=== PATIENT | male | born 1950 | race Caucasian/White ===

== ENCOUNTER 2022-08-18 11:45 | Outpatient (RCR) | payer MEDICARE, BC, SELFPAY | END 2022-09-23 14:07 | disposition home or self-care (01) | PROVIDERS: PCP Podiatrist; Visit Provider Podiatrist | DX: M25.571 Pain in right ankle and joints of right foot (principal); Z51.89 Encounter for other specified aftercare | CPT/HCPCS: 97110; 97112; 97140; 97161 ==

== ENCOUNTER 2022-09-23 08:39 | Outpatient (CLI) | payer MEDICARE, BC, SELFPAY ==
--- OUTSIDE RECORDS SUMMARY | 2022-09-23 08:42 | XMS_ITS ---
Author Name Unknown Organization [facility] Address [address] [place] [id number] Encounter Date(s): 05/02/22 - 05/02/[address] [place] [address] Discharge Disposition: Home or Self Care Attending Physician: MD FORD RICK W. Admitting Physician: MD FORD RICK W. Referring Physician: MD MILAGROS, PHYSICIAN Reason for Visit Cyst of kidney, acquired
--- NOTE | 2022-09-23 09:00 | CRLHL7_ITS ---
For Patients: As a result of the Century Cures Act, medical imaging exams and procedure reports are released immediately into your electronic medical record. You may view this report before your referring provider. If you have questions, please contact your health care provider. Indication: Weakness, lumbar stenosis, new right leg weakness, multiple back surgeries Technique: Noncontrast axial CT of the lumbar spine with coronal and sagittal reformats. Comparison: Lumbar spine x-ray 01/06/2022, MRI lumbar spine 02/25/2019 Findings: Since the 01/06/2022 exam, interval extension of the posterior instrumented spinal fusion now spanning L2-S1, with multilevel decompressive laminectomy. Stable anterior interbody fusion at L5-S1, and chronic fractured right S1 screw remnant. Interbody spacers are present at each surgical level. Subtle lucency along the tips of the bilateral L2 screws. Similar grade 1 retrolisthesis at L2-3 measuring approximately 3-4 mm, with bilateral L2 lamina fractures. Otherwise preserved lumbar lordosis. Scattered anterolateral projecting osteophytes. Bridging osteophytes across the bilateral SI joints. Aortoiliac atherosclerotic plaquing. Colonic diverticulosis. T11-T12, T12-L1, L1-L2: No significant neuroforaminal or spinal canal stenosis. L2-L3: Postop changes, retrolisthesis, bilateral L2 lamina fractures, left central disc protrusion. Mild bilateral neural foraminal narrowing. No significant spinal canal stenosis identified. L3-L4: Postop changes. No significant neural foraminal or spinal canal stenosis. L4-L5: Postop changes. Mild left neural foraminal narrowing. No spinal canal stenosis. L5-S1: Postop changes. Right eccentric disc-osteophyte complex with moderate right neural foraminal stenosis and potential impingement of the exiting right L5 nerve root. No signified left neural foraminal or spinal canal stenosis. Impression: 1. Since the 01/06/2022 exam, interval extension of posterior instrumented spinal fusion, now spanning L2-S1, with multilevel decompressive laminectomy, interbody spacers, and stable anterior L5-S1 fusion. 2. Subtle lucency along the tips of both L2 screws, suspicious for loosening. 3. Fractures of the bilateral L2 lamina, with similar grade 1 retrolisthesis L2 on L3. 4. At L5-S1, right eccentric disc-osteophyte complex encroaches upon the exiting right L5 nerve root along the moderately stenosed neural foramen. Please note that all CT scans at this facility use dose modulation, iterative reconstruction, and/or weight-based dosing when appropriate to reduce radiation dose to as low as reasonably achievable. Dictated by Mayelin Garcia MD @ 09/24/2022 10:27:58 AM (Electronically Signed)
== END 2022-09-23 08:40 | disposition home or self-care (01) ==
PROVIDERS: PCP Podiatrist; Visit Provider Specialist
DX: M48.062 Spinal stenosis, lumbar region with neurogenic claudication (principal); M62.81 Muscle weakness (generalized); T84.038A Mechanical loosening of other internal prosthetic joint, initial encounter; M48.56XA Collapsed vertebra, not elsewhere classified, lumbar region, initial encounter for fracture
CPT/HCPCS: 72131

== ENCOUNTER 2023-02-19 09:15 | Outpatient (RCR) | payer MEDICARE, BC, SELFPAY | END 2023-04-23 11:28 | disposition home or self-care (01) | PROVIDERS: PCP Podiatrist; Visit Provider Orthopaedic Surgery | DX: M25.551 Pain in right hip (principal); M17.11 Unilateral primary osteoarthritis, right knee; M25.561 Pain in right knee; Z51.89 Encounter for other specified aftercare | CPT/HCPCS: 97110; 97161 ==

== ENCOUNTER 2024-08-16 06:36 | Outpatient (CLI) | payer MEDICARE, BC, SELFPAY ==
--- OUTSIDE RECORDS SUMMARY | 2024-08-16 07:30 | XMS_ITS | Clinical Summary ---
Author Organization [facility] Address [address] [place] [address] Care Team Providers Care Paring Machine Operator Name Role Phone Narendra Castle M.D. Primary Care Provider [phone] Source Comments Patient records contain information from all sites at [facility]. For routine questions regarding patient records, call [phone] during business hours, M-F 8:00 AM - 5:00 PM Central Time. Record requests for emergency care only can be directed to [phone] at any time.[facility] Allergies Active Allergy Reactions Criticality Noted Date Comments Amoxicillin Other (see comments) 04/05/2024 Penicillins Hives (Reselect Reaction) 07/03/2005 Chart shows patient received Keflex 500mg #21 on 05/24/2009 and 02/25/2011; Ancef ivpb one dose on 02/11/2011 Tolerated cefazolin 09/15/18 ##No similarities in side chains, very low to no risk of cross-sensitivity to ANCEF. [facility]W Antimicrobial Stewardship Team 11/2018 Sulfa (Sulfonamide Antibiotics) Hives (Reselect Reaction) 07/03/2005 Medications * This document contains information received from the source organization and may not represent a complete record from that organization. cholecalciferol (VITAMIN D3) 50 mcg (2,000 Unit) capsule Take 2,000 Units by mouth daily. Active niacin 500 mg tablet Take 1,000 mg by mouth daily. Active SUMAtriptan (IMITREX) 100 mg tablet Take 100 mg by mouth as needed. 12/11/201 4 Active ascorbic acid, vitamin C, (VITAMIN C) 1,000 mg tablet Take 1,000 mg by mouth 2 (two) times a day. Active zinc chelated 50 mg tablet tablet Take 50 mg by mouth. Active acetaminophen (TYLENOL) 500 mg tablet Take 1,000 mg by mouth every 6 (six) hours as needed. 3 Active diclofenac sodium (VOLTAREN) 1 % gel Apply 2 g topically 4 (four) times a day as needed. Active oxyCODONE (Roxicodone) 5 mg immediate release tablet Take 5-10 mg by mouth every 6 (six) hours as needed. 3 Active polyethylene glycol (Miralax) 17 gram/dose oral powder 17 g by Nasogastric route at bedtime as needed. 3 Active atenoloL (Tenormin) 50 mg tablet Take 1 tablet by mouth daily. 4 Active Active Problems No known active problems Immunizations Immunization Administration Dates Next Due Tdap 04/05/2024 Social History Tobacco Use Types Packs/Day Years Used Date Smoking Tobacco: Former Cigarettes Q uit: 1979 Passive Smoke Exposure: Past Smokeless Tobacco: Never Tobacco Cessation:Counseling Given: Not Answered Alcohol Use Standard Drinks/Week Comments Yes 0 (1 standard drink = 0.6 oz pur e alcohol) Humiliation, Afraid, Rape, and Kick questionnair e Answer Date Recorded Within the last year, have y ou been afraid of your partner or ex-partner? No 10/25/2021 Within the last year, have y ou been humiliated or emotionally abused in other ways by your partner or ex-partner? No Within the last year, have y ou been kicked, hit, slapped, or otherwise physically hurt by your partner or ex-partner? No 10/25/2021 Within the last year, have y ou been raped or forced to have any kind of sexual activity by your partner or ex-partner? No 10/25/2021 Hunger Vital Sign Answer Date Recorded Within the past 12 months, y ou worried that your food would run out before you got the money to buy more. Never true 10/26/19 22 Within the past 12 months, t he food you bought just didn't last and you didn't have money to get more. Never true 10/25/2021 PRAPARE - Transportation Answer Date Re corded In the past 12 months, has l ack of transportation kept you from medical appointments or from getting medications? No 03/2021 In the past 12 months, has l ack of transportation kept you from meetings, work, or from getting things needed for daily living? No 10/25/2021 Housing Stability Vital Sign Answer Omer e Recorded In the last 12 months, was t here a time when you were not able to pay the mortgage or rent on time? No 10/25/2021 In the last 12 months, how many places have you lived? 1 10/25/2021 In the last 12 months, was t here a time when you did not have a steady place to sleep or slept in a retirement (including now)? No 10/25/2021 Education Answer Date Recorded What is the highest level of school you have completed or the highest degree you have received? 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 Gender Identity Not on file Sexual Orientation Straight 10/25/2021 7: 16 AM CDT Last Filed Vital Signs Vital Sign Reading Time Taken Comments Blood Pressure 135/89 04/05/2024 2:40 PM POUCH MAKING MACHINE OPERATOR Pulse 75 04/05/2024 2:40 PM POUCH MAKING MACHINE OPERATOR Temperature 36.1 C (97 F) 04/05/2024 2:40 PM POUCH MAKING MACHINE OPERATOR Respiratory Rate 18 04/05/2024 2:40 PM POUCH MAKING MACHINE OPERATOR Oxygen Saturation 97% 04/05/2024 2:40 PM POUCH MAKING MACHINE OPERATOR Inhaled Oxygen Concentration - - Weight 87.8 kg (193 lb 9.6 oz) 04/05/2024 2:37 P M POUCH MAKING MACHINE OPERATOR Height 177.8 cm (5' 10) 04/05/2024 2:37 PM POUCH MAKING MACHINE OPERATOR Body Mass Index 27.78 04/05/2024 2:37 PM POUCH MAKING MACHINE OPERATOR Plan of Treatment Health Maintenance Due Date Last Done Comments CT Colonography 1950 Cologuard 1950 FIT 1950 Hepatitis C Screening 1950 Visit: Annual, age 65+ (or Medicare and <65) 1950 Visit: Medicare Annual Wellness 1950 Fasting Glucose for Diabetes Screening 09/19/2021 09/19/2018, 09/17/2018 Colonoscopy 06/28/2022 06/28/2012 Colorectal Cancer Screening 06/28/2022 COVID-19 Vaccine ( season) 2023 Influenza Vaccine (#1) 2023 , 11/10/2017, 12/04/2016, Additional history exists Depression Screening (Annual PHQ-2) 02/24/2024 Fall Risk Screen (Annual) 02/24/2024 DTaP,Tdap,and Td Vaccines (4 - Td or Tdap) 04/05/2034 04/05/2024, 03/27/2014, 08/21/2005 Abdominal Aortic Aneurysm (AAA) Screen Completed 03/27/2014 Pneumococcal vaccine (50+ years) Completed 11/10/2017, 10/28/2016 Zoster Vaccines Completed 09/21/2019, 06/23, 06/08/2013 IPV Vaccines Aged Out No longer eligi ble based on patient's age to complete this topic Medical Devices Implanted Type Area Resource Recovery Specialist Device Identifier Shelf Expiration Date Model / Serial / Lot Hardware E.G. Pins/Screws/Ro ds Hardware e.g. pins/screws/ rods Back Description:L4-5, S1 Fusion Hardware E.G. Pins/Screws/Ro ds Hardware e.g. pins/screws/ rods Neck Description:C4-C5 Fusion Knee Implant Knee Implant Left: Knee Insurance [employer] Care Teams Paring Machine Operator Relationship Specialty Start Date End Date Narendra Castle M.D. PCP - General Family Medicine 08/24/22
--- OUTSIDE RECORDS SUMMARY | 2024-08-16 07:30 | XMS_ITS | Clinical Summary ---
Author Organization [facility] Address [address] [place] [id number] Care Team Providers Care [facility] Supervisor Name Role Phone Narendra Castle MD Primary Care Provider Allergies Active Allergy Reactions Criticality Noted Date Comments Amoxicillin Hives 07/03/2005 ##No similarities in side chains, very low to no risk of cross-sensitivity to ANCEF. [facility] Antimicrobial Stewardship Team 11/2018 Penicillins [facility] 07/03/2005 Chart shows patient received Keflex 500mg #21 on 05/24/2009 and 02/25/2011; Ancef ivpb one dose on 02/11/2011 Tolerated cefazolin 09/15/18 ##No similarities in side chains, very low to no risk of cross-sensitivity to ANCEF. [facility] Antimicrobial Stewardship Team 11/2018 Sulfa (Sulfonamide Antibiotics) [facility] 07/03/2005 Medications alfuzosin (UROXATRAL) 10 mg Sustained-Relea se tabletIndicatio ns:Benign prostatic hyperplasia with nocturia Take 1 tablet by mouth once daily with a meal. 30 tablet 11 8 Active cholecalciferol (VITAMIN D3) 5,000 unit capsule Take 5,000 units by mouth once daily. Active gabapentin (NEURONTIN) 300 mg capsule Take 300 mg by mouth 2 times daily. 1 Active SUMAtriptan (IMITREX) 100 mg tablet Take 100 mg by mouth once daily if needed for Migraine. 1 Active ascorbic acid, vitamin C, (VITAMIN C) 1,000 mg tablet Take 1,000 mg by mouth once daily in the evening. Active rosuvastatin (CRESTOR) 20 mg tablet Take 20 mg by mouth at bedtime. Active diclofenac topical (VOLTAREN) 1 % gel Apply 2 g topically to affected area(s) 4 times daily if needed (pain). Active acetaminophen (TYLENOL EXTRA STRGTH) 500 mg tabletIndicatio ns:Acute post-operative pain Take 2 Tablets (1,000 mg) by mouth every 6 hours if needed for Pain. Max acetaminophen dose: 4000mg in 24 hrs. 0 3 Active WalkerIndicatio ns:Spinal stenosis of lumbosacral region Walker with front wheels for home use for 3 months. 1 Each 3 Active methocarbamoL (ROBAXIN) 750 mg tabletIndicatio ns:Acute post-operative pain,S/P spinal surgery Take 1 Tablet (750 mg) by mouth every 6 hours if needed for Muscle Spasm. 30 Tablet 08/21/2022 4:18 PM CDT 3 Active ascorbic acid, vitamin C, (Vitamin C) 500 mg tablet Take 500 mg by mouth every morning. Active oxyCODONE (ROXICODONE) 5 mg immediate release tabletIndicatio ns:S/P spinal surgery Take 1-2 Tablets (5-10 mg) by mouth every 6 hours if needed for Pain. 16 Tablet 12/25/2022 8:14 PM CDT 3 Active polyethylene glycoL (MIRALAX) 17 gram/scoop powderIndicatio ns:S/P spinal surgery Take 1 scoop (17 g) by mouth or nasogastric tube once daily if needed for Constipation. 238 g 12/25/2022 8:14 PM CDT 3 Active sennosides-docu sate (SENOKOT S) (8.6-50 mg) tabletIndicatio ns:S/P spinal surgery Take 1-4 Tablets by mouth two times daily. 28 Tablet 12/25/2022 8:14 PM CDT 3 Active Active Problems Problem Noted Date Diagnosed Date Lumbago 07/28/2024 Back pain with right-sided radiculopathy 023 Overview (12/25/2022): to right hip Personal history of malignant neoplasm of testis 12/25/2022 Thrombocytopenia 12/25/2022 S/P spinal surgery 10/16/2021 Herniated disc, cervical 09/04/2020 Nonalcoholic fatty liver disease 09/05/2019 Lumbar stenosis 08/09/2019 Testicular cancer 09/15/2018 Essential tremor 09/15/2018 Hyperlipidemia 09/15/2018 BPH (benign prostatic hyperplasia) 09/15/2018 Migraine 09/15/2018 Nocturia 06/22/2017 Intractable migraine without status migrainosus 01/08/2015 Neuroma 02/18/2010 Allergic rhinitis, cause unspecified 04/16/2009 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, including hip 07/06/2007 Spinal stenosis of lumbosacral region Resolved Problems Problem Noted Date Diagnosed Date Resolved Date Ingrowing nail 07/13/2013 09/08/2014 Migraine, unspecified, with intractable migraine, so stated, without mention of status migrainosus 09/07/2006 01/08/2015 Plantar fascial fibromatosis 02/04/2006 06/08/2013 Encounters Date Type Department Care Team Description 08/11/2024 Travel 08/02/2024 9:00 AM CDT Ancillary Procedure [facility] [address] [address] 08/02/2024 Travel 07/28/2024 Travel 07/27/2024 Transcribe Orders [facility] [address] [place] [address] Shahriar Meza MD 07/24/2024 10:15 AM CDT Ancillary Procedure [facility] [address] [address] 07/24/2024 9:30 AM CDT Ancillary Procedure [facility] [id number] [address] 07/24/2024 Travel 07/21/2024 Travel 07/07/2024 Transcribe Orders [facility] [phone] Liana Russo PA 05/31/2024 2:45 PM CDT Ancillary Procedure [facility] [address] [place] [address] 05/31/2024 Travel 05/31/2024 Orders Only [facility] [address] [place] [address] Liana Russo PA <No scans attached> from Last 3 Months Immunizations Immunization Administration Dates Next Due DTaP 08/21/2005 Hepatitis B (Adult) 12/04/2016, 8,09/25/2006,2005 Influenza, IIV3 (Age >=3 years) 12/04/2014 Influenza, IIV4 (=>6mos) MDV 11/10/2017, 12/04/2016,10/23/2015,2013 Influenza, Inactivated AIIV4 (Age 65+ Years) Preserv Free 12/12/2019 Pneumococcal Poly,23-Valent (Pneumovax) 11/10/2017 Pneumococcal conj 13-Valent (Prevnar 13) 10/28/2016 Tdap 03/27/2014 Typhoid (injectable) 05/07/2015,03/13/2009 Zoster (Shingrix-RZV, recombinant) 09/21/2019, Zoster (Zostavax-ZVL, live) 06/08/2013 Family History Medical History Relation Name Comments Hyperlipidemia Mother Relation Name Status Comments Brother 1 Alive Brother 2 Alive Father Mother Sister 1 Alive Sister 2 Alive Sister 3 Alive Social History Tobacco Use Types Packs/Day Years Used Date Smoking Tobacco: Former Cigarettes 1.5 43 0 07/29/1966 - 07/29/1978 Smokeless Tobacco: Never Tobacco Cessation:Counseling Given: Not Answered Alcohol Use Standard Drinks/Week Comments Yes 2 (1 standard drink = 0.6 oz pur e alcohol) 2 beers a week Social Connections Answer Date Recorded Frequency of Communication with Friends and Fami ly 0 12/24/2022 Financial Resource Strain Answer Date R ecorded Difficulty of Paying Living Expenses 3 12/24/2022 Difficulty of Paying Living Expenses Not on file 12/24/2022 Food Insecurity Answer Date Recorded Do you worry your food will run out before you are able to buy more? 1 12/24/2022 Transportation Needs Answer Date Record ed Lack of Transportation (Medical) 1 12/24/2022 Housing Stability Answer Date Recorded What is your housing situation today? 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 Not on file Not on file Obstetrics History Last Filed Vital Signs Vital Sign Reading Time Taken Comments Blood Pressure 135/80 12/30/2022 10:15 AM MULTIMEDIA ENGINEER Pulse 95 12/30/2022 10:11 AM MULTIMEDIA ENGINEER Temperature 36.8 C (98.2 F) 12/30/2022 10:11 AM MULTIMEDIA ENGINEER Respiratory Rate 12 12/30/2022 10:11 AM MULTIMEDIA ENGINEER Oxygen Saturation 96% 12/30/2022 10:11 AM MULTIMEDIA ENGINEER Inhaled Oxygen Concentration - - Weight 93 kg (205 lb) 12/24/2022 9:59 AM CDT Height 177.8 cm (5' 10) 12/24/2022 9:59 AM CDT Body Mass Index 29.41 12/24/2022 9:59 AM CDT Plan of Treatment Health Maintenance Due Date Last Done Comments Depression screening for age 12+ 1963 Hepatitis C screening for ag e 18-79 04/23/1969 Medicare Wellness for age 65+ 04/23/2016 BMI (ht and wt on same day) for age 18+ 06/29/2019 06/28/2018 Lipids for age 45-75 09/09/2019 09/08/2014, 06/08/2013, 03/01/2012, Additional history exists Colonoscopy through age 75 06/28/2022 06/28/2012, COVID-19 vaccine series ( season) 2023 Tetanus booster 03/27/2024 03/27/2014, 02/2010 (Completed outside of [facility]) Influenza Vaccine (Season Ended) 2024 12/12/2019, 11/10/2017, 12/04/2016, Additional history exists RSV vaccine for adults or (1 - 1-dose 75+ series) 04/23/2026 Tdap Completed 03/27/2014 Hepatitis B series for 19+ Completed 12/04, 03/23/2007, 09/25/2006, Additional history exists Pneumococcal series for age 50+ Completed 8, 10/28/2016 Zoster (shingles) series for age 50+ Completed 09/21/2019, 07/12/2019, 06/08/2013 Medical Devices Implanted Type Area Inside Sales Account Executive Device Identifier Shelf Expiration Date Model / Serial / Lot [id number] ne Matrix 5cc [place] Plus Paste Dbm Implanted:Qty: 1 on 09/15/2018 by Megan Vazquez MD at [facility] Explanted:at [facility] (Quantity not on file) N/A: Spine Medtronic Spine/Ortho 03/18/2020 [id number]# / [id number] / Set Screw Lmbr 5.5-6mm Vitality Torque - [id number] Implanted:Qty: 4 on 09/15/2018 by Megan Vazquez MD at [facility] N/A: Spine Laz Biomet Spine 66520.00 1# / / [id number] ne 1-4mm 30cc Medtronic Chips Canclls Freeze Dried Implanted:Qty: 1 on 09/15/2018 by Megan Vazquez MD at [facility] Explanted:at [facility] (Quantity not on file) N/A: Spine Medtronic Spine/Ortho 02/06/2023 [id number]# / [id number] / [id number] ne 1-4mm 15cc Medtronic Chips Canclls Freeze Dried Implanted:Qty: 1 on 09/15/2018 by Megan Vazquez MD at [facility] Explanted:at [facility] (Quantity not on file) N/A: Spine Medtronic Spine/Ortho 11/01/2022 [id number]# / [id number] / Spacer Lmbr Lg 16mm 8deg Perimeter Alif Peek - [id number] Implanted:Qty: 1 on 09/15/2018 by Megan Vazquez MD at [facility] N/A: Spine Medtronic Spine/Ortho 07/14/2026 [id number]# / / 96HP Screw Lmbr Ant 6.5x25mm Pyramid Plus Va - [id number] Implanted:Qty: 1 on 09/15/2018 by Megan Vazquez MD at [facility] N/A: Spine Medtronic Spine/Ortho [id number]# / / Washer 17mm - [id number] Implanted:Qty: 1 on 09/15/2018 by Megan Vazquez MD at [facility] N/A: Spine Medtronic Spine/Ortho [id number]# / / Jewel Lmbr 45x5.5mm Vitality Cvd Titnm - [id number] Implanted:Qty: 2 on 09/15/2018 by Megan Vazquez MD at [facility] N/A: Spine Laz Biomet Spine 15 6# / / Screw Lmbr Post 6.5x45mm Vitality Va - [id number] Implanted:Qty: 3 on 09/15/2018 by Megan Vazquez MD at [facility] N/A: Spine Laz Biomet Spine .07 5# / / Screw Lmbr Post 6.5x50mm Vitality Va - [id number] Implanted:Qty: 1 on 09/15/2018 by Megan Vazquez MD at [facility] N/A: Spine Laz Biomet Spine .07 6# / / [id number] ne Matrix 3cc Luz Dbf Putty Dbm Implanted:Qty: 1 on 08/09/2019 by Megan Vazquez MD at [facility] Explanted:at [facility] (Quantity not on file) N/A: Spine Medtronic Spine/Ortho 2021 [id number]# / [id number] / [id number] ne 1-4mm 30cc Medtronic Chips Canclls Freeze Dried Implanted:Qty: 1 on 08/09/2019 by Megan Vazquez MD at [facility] Explanted:at [facility] (Quantity not on file) N/A: Spine Medtronic Spine/Ortho 11/15/2023 [id number]# / [id number] / Spacer Lmbr [id number] [place] Convex Stra Plif - [id number] Implanted:Qty: 1 on 08/09/2019 by Megan Vazquez MD at [facility] N/A: Spine Laz Biomet 11/22/2024 [id number]# / / [id number] Screw Lmbr Post 6.5x45mm Vitality Va - [id number] Implanted:Qty: 3 on 08/09/2019 by Megan Vazquez MD at [facility] N/A: Spine Laz Biomet Spine . 5# / / Screw Lmbr Post 7.5x50mm Vitality Va - [id number] Implanted:Qty: 2 on 08/09/2019 by Megan Vazquez MD at [facility] N/A: Spine Laz Biomet Spine 8# / / Set Screw Lmbr 5.5-6mm Vitality Torque - [id number] Implanted:Qty: 5 on 08/09/2019 by Megan Vazquez MD at [facility] N/A: Spine Laz Biomet Spine 1# / / Jewel Lmbr 65x5.5mm Vitality Cvd Titnm - [id number] Implanted:Qty: 1 on 08/09/2019 by Megan Vazquez MD at [facility] N/A: Spine Laz Biomet Spine 15. 0# / / Jewel Lmbr 45x5.5mm Vitality Cvd Titnm - [id number] Implanted:Qty: 1 on 08/09/2019 by Megan Vazquez MD at [facility] N/A: Spine Laz Biomet Spine 15 6# / / [id number] bone Cerv 7mm 4 Deg Liberal W/P Implanted:Qty: 1 on 09/04/2020 by Megan Vazquez MD at [facility] Explanted:at [facility] (Quantity not on file) N/A: Spine Herminia Spine 10/16/2024 [id number] / [id number] / [id number] ne Matrix 0.5cc Progenix Putty Dbm Implanted:Qty: 1 on 09/04/2020 by Megan Vazquez MD at [facility] Explanted:at [facility] (Quantity not on file) N/A: Spine Medtronic Spine/Ortho 12/26/2021 [id number] / [id number] / [id number] bone Cerv 7mm 4 Deg Liberal W/P Implanted:Qty: 1 on 09/04/2020 by Megan Vazquez MD at [facility] Explanted:at [facility] (Quantity not on file) N/A: Spine Liberal Spine 05/01/2025 [id number] / [id number] / Plate Centre 2level 40mm Implanted:Qty: 1 on 09/04/2020 by Megan Vazquez MD at [facility] N/A: Spine [id number] / / Description:PLATE OZARK 2LEV EL 40MM Screw Centre Variable 4.0 X 14 Implanted:Qty: 6 on 09/04/2020 by Megan Vazquez MD at [facility] N/A: Spine [id number] / / Description:SCREW OZARK VARI ABLE 4.0 X 14 [id number] 1-4mm 15cc Medtronic Chips Canclls Freeze Dried Implanted:Qty: 1 on 10/16/2021 by Megan Vazquez MD at [facility] Explanted:at [facility] (Quantity not on file) N/A: Spine Medtronic Spine/Ortho 09/04/2025 [id number] / [id number] / Jewel Lmbr 65x5.5mm Vitality Cvd Titnm - [id number] Implanted:Qty: 1 on 10/16/2021 by Megan Vazquez MD at [facility] N/A: Spine Laz Biomet Spine 0 / / Set Screw Lmbr 5.5-6mm Vitality Torque - [id number] Implanted:Qty: 3 on 10/16/2021 by Megan Vazquez MD at [facility] N/A: Spine Laz Biomet Spine 1 / / Screw 7.5x45mm Implanted:Qty: 1 on 10/16/2021 by Megan Vazquez MD at [facility] N/A: Spine [id number] / / Description:SCREW 7.5X45MM Moldable Demineralized Fibers Implanted:Qty: 1 on 08/20/2022 by Megan Vazquez MD at [facility] 12/24/2026 BL-1800-05 / [id number] / Description:MOLDABLE DEMINER ALIZED FIBERS Bone 1-4mm 60cc Medtronic Fine Canclls Freeze Dried - [id number] Implanted:Qty: 1 on 08/20/2022 by Megan Vazquez MD at [facility] N/A: Spine Medtronic Spine/Ortho 04/28/2026 [id number] / [id number] / Spacer Lmbr [id number] Zyston Convex Stra Tlif - [id number] Implanted:Qty: 1 on 08/20/2022 by Megan Vazquez MD at [facility] N/A: Spine Laz Biomet 05/23/2024 14-507770 / / [id number] Spacer Lmbr [id number] Zyston Convex Stra Tlif - [id number] Implanted:Qty: 1 on 08/20/2022 by Megan Vazquez MD at [facility] N/A: Spine Laz Biomet 14-452312 / / [id number] Screw Poly 6.5 X 45 Implanted:Qty: 4 on 08/20/2022 by Megan Vazquez MD at [facility] N/A: Spine [id number] / / Description:SCREW POLY 6.5 X 45 Screw Poly 7.5 X 45 Implanted:Qty: 1 on 08/20/2022 by Megan Vazquez MD at [facility] N/A: Spine [id number] / / Description:SCREW POLY 7.5 X 45 Jewel Lmbr 100x5.5mm Vitality Cvd Titnm - [id number] Implanted:Qty: 1 on 08/20/2022 by Megan Vazquez MD at [facility] N/A: Spine Laz Biomet Spine 07.30331.01 7 / / Jewel Lmbr 120x5.5mm Vitality Cvd Titnm - [id number] Implanted:Qty: 1 on 08/20/2022 by Megan Vazquez MD at [facility] N/A: Spine Laz Biomet Spine 1 / / Set Screw Lmbr 5.5-6mm Vitality Torque - [id number] Implanted:Qty: 9 on 08/20/2022 by Megan Vazquez MD at [facility] N/A: Spine Laz Biomet Spine 1 / / [id number] 1-10mm 30cc Medtronic Chips Canclls Freeze Dried Implanted:Qty: 1 on 12/24/2022 at [facility] N/A: Spine Medtronic Spine/Ortho 08/05/2025 [id number] / [id number] / Bone Matrix Md Infuse Bmp - [id number] Implanted:Qty: 1 on 12/24/2022 by Megan Vazquez MD at [facility] N/A: Spine Medtronic Spine/Ortho 05/23/2024 [id number] / / [id number] Set Screw Lmbr 5.5-6mm Vitality Torque - [id number] Implanted:Qty: 9 on 12/24/2022 by Megan Vazquez MD at [facility] N/A: Spine Laz Biomet Spine 1 / / Jewel Lmbr 90x5.5mm Vitality Cvd Titnm - [id number] Implanted:Qty: 1 on 12/24/2022 by Megan Vazquez MD at [facility] N/A: Spine Laz Biomet Spine 5 / / Jewel Lmbr 95x5.5mm Vitality Cvd Titnm - [id number] Implanted:Qty: 1 on 12/24/2022 by Megan Vazquez MD at [facility] N/A: Spine Laz Biomet Spine 6 / / Jewel Lmbr 120x5.5mm Vitality Cvd Titnm - [id number] Implanted:Qty: 1 on 12/24/2022 by Megan Vazquez MD at [facility] N/A: Spine Laz Biomet Spine 1 / / Screw Lmbr Post 9.5x50mm Vitality Va - [id number] Implanted:Qty: 2 on 12/24/2022 by Megan Vazquez MD at [facility] N/A: Spine Laz Biomet Spine 07.59891.20 2 / / Screw Spinal 7.5x45mm Poly Tl Implanted:Qty: 2 on 12/24/2022 by Megan Vazquez MD at [facility] N/A: Spine [id number] / / Description:SCREW SPINAL 7.5 X45MM POLY TL Explanted Type Area Inside Sales Account Executive Device Identifier Shelf Expiration Date Model / Serial / Lot Explant - Laz Explanted:Qty: 1 on 08/09/2019 at [facility] N/A: Spine Description:SCREW X2 JEWEL X2 SET SCREW X4 Explant Explanted:Qty: 5 on 10/16/2021 by Megan Vazquez MD at [facility] N/A: Spine Description:JEWEL X1 SCREW X1 SET SCREW X3 Explant Vitality Explanted:Qty: 1 on 08/20/2022 at [facility] Description:2 RIDS, 2 SCREWS , 4 SET SCREWS Explant Explanted:Qty: 15 on 12/24/2022 by Megan Vazquez MD at [facility] N/A: Spine Description:RODX2 SCREW X4 SET SCREW X9 Procedures Procedure Name Priority Date/Time Associated Diagnosis Comments CT SPINE LUMBAR WO Routine 08/02/2024 8: 52 AM CDT Lumbar radiculopathy Spinal stenosis, lumbar region, without neurogenic claudication MR SPINE LUMBAR WO Routine 07/24/2024 9: 55 AM CDT Lumbar radiculopathy Spinal stenosis, lumbar region, without neurogenic claudication MR SPINE THORACIC WO Routine 07/24/2024 9:41 AM CDT Thoracic spinal stenosis XR SPINE LUMBAR 2 VIEWS STANDING Routine 05/31/2024 2:43 PM CDT S/P spinal surgery LIPID PANEL W REFLEX MEASURED LDL Routine 09/08/2014 1:21 PM CDT Screening for cardiovascular condition COLONOSCOPY SCREENING Routine 06/28/2012 12:00 AM CDT Special screening for malignant neoplasms, colon from Last 3 Months or Most Recently Relevant to Health Maintenance Results * CT SPINE LUMBAR WO (08/02/2024 8:52 AM CDT) Anatomical Region Laterality Modality LUMBAR SPINE, Spine, Spine Compu kary Tomography 08/02/2024 1:35 PM CDT Impressions 08/02/2024 1:35 PM CDT 1. Stable retrolisthesis of L2 on L3. Otherwise, normal alignment. No fractures 2. Stable postop changes L2-3 through L5-S1. Hardware appears well-seated 3. At L2-3, mild narrowing of the bilateral neural foramina 4. At L5-S1, mild narrowing of the bilateral neural foramina Please note that all CT scans at this facility use dose modulation, iterative reconstruction, and/or weight-based dosing when appropriate to reduce radiation dose to as low as reasonably achievable. Dictated by Severo Lopez MD @ 08/02/2024 1:35:29 PM (Electronically Signed) Narrative 08/02/2024 1:35 PM CDT For Patients: As a result of the Century Cures Act, medical imaging exams and procedure reports are released immediately into your electronic medical record. You may view this report before your referring provider. If you have questions, please contact your health care provider. INDICATION: Lumbar radiculopathy. COMPARISON: 07/24/2024. 05/31/2024. TECHNIQUE: Noncontrast CT lumbar spine. FINDINGS: Stable retrolisthesis of L2 on L3 measures approximately 3 mm. Otherwise, normal alignment. No fractures. No vertebral body loss of height. Stable postop changes diskectomy interbody fusion L2-3 through L5-S1. Posterior jewel trans view screw fixation L2-S1. Hardware appears well seated. Mature dorsal bone grafting. [id number]: No spinal canal neural foraminal narrowing. L1-2: No spinal canal neural foraminal narrowing. L2-3: Grade 1 retrolisthesis. No narrowing of spinal canal. Mild narrowing of the bilateral foramina. L3-4: Postoperative changes. No spinal canal or neural foraminal narrowing. L4-5: Postop changes. No narrowing of spinal canal. No neural foraminal narrowing. L5-S1: Postop changes. No narrowing of the spinal canal. No impingement of the traversing S1 nerve roots. Mild narrowing of the bilateral foramina. Degenerative changes of the SI joints. Scattered vascular calcifications. Procedure Note Severo Lopez MD, PhD - 08/02/2024 For Patients: As a result of the Cures Act, medical imagingexams and procedure reports are released immediately into your electronicmedical record. You may view this report before your referring provider.If you have questions, please contact your health care provider. INDICATION: Lumbar radiculopathy. COMPARISON: 07/24/2024. 05/31/2024. TECHNIQUE: Noncontrast CT lumbar spine. FINDINGS: Stable retrolisthesis of L2 on L3 measures approximately 3 mm. Otherwise,normal alignment. No fractures. No vertebral body loss of height. Stable postop changes diskectomy interbody fusion L2-3 through L5-S1.Posterior jewel trans view screw fixation L2-S1. Hardware appears wellseated. Mature dorsal bone grafting. [id number]: No spinal canal neural foraminal narrowing. L1-2: No spinal canal neural foraminal narrowing. L2-3: Grade 1 retrolisthesis. No narrowing of spinal canal. Mild narrowingof the bilateral foramina. L3-4: Postoperative changes. No spinal canal or neural foraminalnarrowing. L4-5: Postop changes. No narrowing of spinal canal. No neural foraminalnarrowing. L5-S1: Postop changes. No narrowing of the spinal canal. No impingement ofthe traversing S1 nerve roots. Mild narrowing of the bilateral foramina. Degenerative changes of the SI joints. Scattered vascular calcifications. IMPRESSION: 1. Stable retrolisthesis of L2 on L3. Otherwise, normal alignment. Nofractures 2. Stable postop changes L2-3 through L5-S1. Hardware appears well-seated 3. At L2-3, mild narrowing of the bilateral neural foramina 4. At L5-S1, mild narrowing of the bilateral neural foramina Please note that all CT scans at this facility use dose modulation,iterative reconstruction, and/or weight-based dosing when appropriate toreduce radiation dose to as low as reasonably achievable. Dictated by Severo Lopez MD @ 08/02/2024 1:35:29 PM (Electronically Signed) us Liana WINK[facility] CT Fi nal Result * MR SPINE LUMBAR WO (07/24/2024 9:55 AM CDT) Anatomical Region Laterality Modality Spine, LUMBAR SPINE Magnetic Res onance 07/25/2024 8:31 AM CDT Impressions 07/25/2024 8:31 AM CDT 1. Stable grade 1 retrolisthesis of L2 on L3. Otherwise, normal alignment. No fractures 2. Lumbar spondylosis. 3. Stable postop changes L2-S1. Associated artifact. 4. Lumbar spondylosis 5. At L1-2, mild narrowing of the bilateral neural foramina 6. At L3-4, there may be mild narrowing of the right neural foramen. 7. At L4-5 and L5-S1, mild narrowing of the bilateral neural foramina Dictated by Severo Lopez MD @ 07/25/2024 8:31:39 AM (Electronically Signed) Narrative 07/25/2024 8:31 AM CDT For Patients: As a result of the Century Cures Act, medical imaging exams and procedure reports are released immediately into your electronic medical record. You may view this report before your referring provider. If you have questions, please contact your health care provider. INDICATION: Lumbar radiculopathy. COMPARISON: 05/31/2024 and 01/04/2024. Technique Sagittal T1, T2, and STIR sequences. Axial T1 and T2 weighted sequences. FINDINGS: Stable grade 1 retrolisthesis of L2 on L3 measures approximately 4 mm. Otherwise, normal alignment. No fractures. No vertebral body loss of height. No ligamentous injury. No suspicious osseous lesions. Normal conus terminates at L1. Stable postop changes of diskectomy interbody fusion L2-3 through L5-S1. Posterior fusion hardware L2-S1. Associated artifact. T11-12: Disc degeneration posterior disc bulge. No spinal canal or neural foraminal narrowing. T12-L1: No spinal canal neural foraminal narrowing. L1-2: No narrowing of spinal canal. Facet arthropathy results in mild narrowing of bilateral foramina. L2-3: Postoperative changes. Spinal canal is decompressed by laminectomy. No spinal canal or neural foraminal narrowing. L3-4: Postoperative changes. Residual diffuse disc bulge. No narrowing of spinal canal. Allowing for artifact, mild narrowing of the right neural foramen. No narrowing of the left neural foramen. L4-5: Postoperative changes. Residual posterior disc bulging. No narrowing of spinal canal. Mild narrowing of bilateral foramina. L5-S1: Postoperative changes. No narrowing of spinal canal. No impingement of the traversing S1 nerve roots. Mild narrowing of bilateral foramina. Degenerative changes of the SI joints. Left renal cyst. Procedure Note Severo Lopez MD, PhD - 07/25/2024 For Patients: As a result of the Century Cures Act, medical imagingexams and procedure reports are released immediately into your electronicmedical record. You may view this report before your referring provider.If you have questions, please contact your health care provider. INDICATION: Lumbar radiculopathy. COMPARISON: 05/31/2024 and 01/04/2024. Technique Sagittal T1, T2, and STIR sequences. Axial T1 and T2 weightedsequences. FINDINGS: Stable grade 1 retrolisthesis of L2 on L3 measures approximately 4 mm.Otherwise, normal alignment. No fractures. No vertebral body loss ofheight. No ligamentous injury. No suspicious osseous lesions. Normal conusterminates at L1. Stable postop changes of diskectomy interbody fusion L2-3 through L5- S1.Posterior fusion hardware L2-S1. Associated artifact. T11-12: Disc degeneration posterior disc bulge. No spinal canal or neuralforaminal narrowing. T12-L1: No spinal canal neural foraminal narrowing. L1-2: No narrowing of spinal canal. Facet arthropathy results in mildnarrowing of bilateral foramina. L2-3: Postoperative changes. Spinal canal is decompressed by laminectomy.No spinal canal or neural foraminal narrowing. L3-4: Postoperative changes. Residual diffuse disc bulge. No narrowing ofspinal canal. Allowing for artifact, mild narrowing of the right neuralforamen. No narrowing of the left neural foramen. L4-5: Postoperative changes. Residual posterior disc bulging. No narrowingof spinal canal. Mild narrowing of bilateral foramina. L5-S1: Postoperative changes. No narrowing of spinal canal. No impingementof the traversing S1 nerve roots. Mild narrowing of bilateral foramina. Degenerative changes of the SI joints. Left renal cyst. IMPRESSION: 1. Stable grade 1 retrolisthesis of L2 on L3. Otherwise, normal alignment.No fractures 2. Lumbar spondylosis. 3. Stable postop changes L2-S1. Associated artifact. 4. Lumbar spondylosis 5. At L1-2, mild narrowing of the bilateral neural foramina 6. At L3-4, there may be mild narrowing of the right neural foramen. 7. At L4-5 and L5-S1, mild narrowing of the bilateral neural foramina Dictated by Severo Lopez MD @ 07/25/2024 8:31:39 AM (Electronically Signed) us [facility] Result * MR SPINE THORACIC WO (07/24/2024 9:41 AM CDT) Anatomical Region Laterality Modality Spine, THORACIC SPINE Magnetic R esonance 07/25/2024 8:24 AM CDT Impressions 07/25/2024 8:24 AM CDT 1. Normal alignment. No fractures. 2. Thoracic spondylosis 3. Normal cord signal. 4. Multilevel mild disc degeneration and posterior disc bulging. Otherwise, no spinal canal or neural foraminal narrowing. Dictated by Severo Lopez MD @ 07/25/2024 8:24:50 AM (Electronically Signed) Narrative 07/25/2024 8:24 AM CDT For Patients: As a result of the Cures Act, medical imaging exams and procedure reports are released immediately into your electronic medical record. You may view this report before your referring provider. If you have questions, please contact your health care provider. INDICATION: Thoracic spinal stenosis. COMPARISON: None. TECHNIQUE: Sagittal T1, T2, and STIR sequences. Axial T2/gradient sequences. FINDINGS: Normal vertebral body and facet alignment. No fractures. No vertebral body loss of height. No spondylosis is. No evidence injury. No suspicious osseous lesions. Postoperative changes in the cervical spine. Vertebral body hemangioma T11. Normal cord signal. No intradural mass or lesion. Thoracic spondylosis with multilevel disc degeneration. T2-3: Disc generation shallow right paracentral disc bulge or disc osteophyte complex. No narrowing of spinal canal. No neural foraminal narrowing. T4-5: Disc degeneration and shallow posterior disc bulge. No spinal canal neural foraminal narrowing. T7-8: Disc degeneration and shallow left paracentral disc bulge. No narrowing of spinal canal. No neural foraminal narrowing. T8-9: Disc degeneration. Posterior disc bulge. No narrowing of spinal canal. No neural foraminal narrowing. T9-10: Disc degeneration. Posterior disc bulge. No narrowing of spinal canal. No neural foraminal narrowing. T10-11: Disc degeneration. Posterior disc bulge. No spinal canal or neural foraminal narrowing. T11-12: Disc degeneration. Posterior disc bulge. No narrowing of spinal canal. No neural foraminal narrowing. Normal paraspinal soft tissues. Procedure Note Severo Lopez MD, PhD - 07/25/2024 For Patients: As a result of the Cures Act, medical imagingexams and procedure reports are released immediately into your electronicmedical record. You may view this report before your referring provider.If you have questions, please contact your health care provider. INDICATION: Thoracic spinal stenosis. COMPARISON: None. TECHNIQUE: Sagittal T1, T2, and STIR sequences. Axial T2/gradient sequences. FINDINGS: Normal vertebral body and facet alignment. No fractures. No vertebral bodyloss of height. No spondylosis is. No evidence injury. No suspiciousosseous lesions. Postoperative changes in the cervical spine. Vertebral body hemangioma T11. Normal cord signal. No intradural mass or lesion. Thoracic spondylosis with multilevel disc degeneration. T2-3: Disc generation shallow right paracentral disc bulge or discosteophyte complex. No narrowing of spinal canal. No neural foraminalnarrowing. T4-5: Disc degeneration and shallow posterior disc bulge. No spinal canalneural foraminal narrowing. T7-8: Disc degeneration and shallow left paracentral disc bulge. Nonarrowing of spinal canal. No neural foraminal narrowing. T8-9: Disc degeneration. Posterior disc bulge. No narrowing of spinalcanal. No neural foraminal narrowing. T9-10: Disc degeneration. Posterior disc bulge. No narrowing of spinalcanal. No neural foraminal narrowing. T10-11: Disc degeneration. Posterior disc bulge. No spinal canal or neuralforaminal narrowing. T11-12: Disc degeneration. Posterior disc bulge. No narrowing of spinalcanal. No neural foraminal narrowing. Normal paraspinal soft tissues. IMPRESSION: 1. Normal alignment. No fractures. 2. Thoracic spondylosis 3. Normal cord signal. 4. Multilevel mild disc degeneration and posterior disc bulging.Otherwise, no spinal canal or neural foraminal narrowing. Dictated by Severo Lopez MD @ 07/25/2024 8:24:50 AM (Electronically Signed) [facility] Result * XR SPINE LUMBAR 2 VIEWS STANDING (05/31/2024 2:43 PM CDT) Anatomical Region Laterality Modality Spine, LUMBAR SPINE Digital Radi ography 06/01/2024 9:22 AM CDT Narrative 06/01/2024 9:22 AM CDT For Patients: As a result of the Cures Act, medical imaging exams and procedure reports are released immediately into your electronic medical record. You may view this report before your referring provider. If you have questions, please contact your health care provider. Indication: Postsurgical follow-up. Technique: Two views lumbar spine Comparison: 06/24/2023. Findings: Postsurgical change of posterior lumbar fusion extending from L2 through S1. Unchanged fractured screw fragment on the right at S1. Otherwise, no evidence of hardware complication. No evidence of hardware loosening. Alignment unchanged, with trace L1 and L2 retrolisthesis. Atherosclerotic calcifications. Impression: Postsurgical changes of the lumbar spine. No acute complication. Dictated by Javier Pickens MD @ 06/01/2024 9:22:19 AM (Electronically Signed) Procedure Note Javier Pickens MD - 06/01/2024 For Patients: As a result of the Cures Act, medical imagingexams and procedure reports are released immediately into your electronicmedical record. You may view this report before your referring provider.If you have questions, please contact your health care provider. Indication: Postsurgical follow-up. Technique: Two views lumbar spine Comparison: 06/24/2023. Findings: Postsurgical change of posterior lumbar fusion extending from L2 throughS1. Unchanged fractured screw fragment on the right at S1. Otherwise, noevidence of hardware complication. No evidence of hardware loosening.Alignment unchanged, with trace L1 and L2 retrolisthesis. Atheroscleroticcalcifications. Impression: Postsurgical changes of the lumbar spine. No acute complication. Dictated by Javier Pickens MD @ 06/01/2024 9:22:19 AM (Electronically Signed) us [facility] Fi nal Result * (ABNORMAL) LIPID PANEL W REFLEX MEASURED LDL (09/08/2014 1:21 PM CDT) CHOLESTEROL,TOTAL 225(H) 100 - 199 mg/dL 09/08/2014 10:41 PM CDT [facility] TRIGLYCERIDES 163(H) <150 mg/dL 09/08/2014 10:41 PM CDT [facility] HDL CHOLESTEROL 49 >40 mg/dL 09/08/2014 10:41 PM CDT [facility] NON-HDL CHOLESTEROL 176(H) <145 mg/dl 09/08/2014 10:41 PM CDT [facility] CHOL/HDL RATIO 4.59(H) <4.50 09/08/2014 10:41 PM CDT [facility] LDL CHOLESTEROL 143(H) <=130 mg/dL 09/08/2014 10:41 PM CDT [facility] PATIENT STATUS FASTING 09/08/2014 10:41 PM CDT [facility] Blood specimen (specimen) BLOOD SPECIMEN / Unknown Venipuncture / Unknown 09/08/2014 1:21 PM CDT 09/08/2014 1:21 PM CDT us Madelaine Durham MD CHEMISTRY F inal Result [facility] [address] [place] [address], * COLONOSCOPY SCREENING (06/28/2012 12:00 AM CDT) Narrative 06/28/2012 12:00 AM CDT Procedure Note Scanner - 06/28/2012 12:00 AM CDT Chris Rudyesau DO GI PROCEDURE ORD Edited from Last 3 Months or Most Recently Relevant to Health Maintenance Insurance BLUE [employer] EMP MEDICARE PB ONLY MEDICARE PART A HB ONLY MEDICARE PART B HB ONLY BLUE [employer] DE FED EMP HC MEDICARE PPS Advance Directives * Full Code (Latest Code Status on File) Date Activated Date Inactivated Comments 12/24/2022 3:08 PM 12/27/2022 2:21 PM Question Answer Comments Code Status Discussion: Unable to Assess Preferences, Provider to review later * Full Code Date Activated Date Inactivated Comments 08/20/2022 6:53 PM 08/22/2022 2:28 PM Question Answer Comments Code Status Discussion: Unable to Assess Preferences, Provider to review later * Full Code Date Activated Date Inactivated Comments 10/16/2021 11:48 AM 10/18/2021 2:44 PM Question Answer Comments Code Status Discussion: Other * Full Code Date Activated Date Inactivated Comments 09/04/2020 11:27 AM 09/05/2020 1:08 PM Question Answer Comments Code Status Discussion: Not Discussed * Full Code Date Activated Date Inactivated Comments 08/09/2019 1:46 PM 08/11/2019 2:26 PM Care Teams Research Animal Facility Supervisor Relationship Specialty Start Date End Date Narendra Castle MD [address] [address] PCP - General Family Practice 07/31/22
--- OUTSIDE RECORDS SUMMARY | 2024-08-17 00:41 | XMS_ITS | Clinical Summary ---
Author Organization [employer] [facility] [employer] Address [address] [place] [address] Care Team Providers Care Transit Department Clerk Name Role Phone Narendra Castle MD Primary Care Provider [phone] Allergies Active Allergy Reactions Criticality Noted Date Comments Amoxicillin Hives 07/03/2005 ##No similarities in side chains, very low to no risk of cross-sensitivity to ANCEF. [facility] Antimicrobial Stewardship Team 11/2018 Penicillins [facility] 07/03/2005 Chart shows patient received Keflex 500mg #21 on 05/24/2009 and 02/25/2011; Ancef ivpb one dose on 02/11/2011 Tolerated cefazolin 09/15/18 ##No similarities in side chains, very low to no risk of cross-sensitivity to ANCEF. [facility] Antimicrobial Stewardship Team 11/2018 Sulfa (Sulfonamide Antibiotics) [facility] 07/03/2005 Medications alfuzosin (UROXATRAL) 10 mg Sustained-Relea [...] Encounters Date Type Department Care Team Description 08/16/2024 7:20 AM CDT Office Visit [facility] [address] [place] [address] Shahriar Meza MD Procedure (Bilateral L1-2 TFESI) 08/11/2024 Travel 08/02/2024 9:00 AM CDT Ancillary Procedure [facility] [address] [address] 08/02/2024 Travel 07/28/2024 Travel 07/27/2024 Transcribe Orders [facility] [address] [place] [address] Shahriar Meza MD 07/24/2024 10:15 AM CDT Ancillary Procedure [facility] [address] [address] 07/24/2024 9:30 AM CDT Ancillary Procedure [facility] [address] [address] 07/24/2024 Travel 07/21/2024 Travel 07/07/2024 Transcribe Orders [facility] [phone] Liana Russo PA 05/31/2024 2:45 PM CDT Ancillary Procedure [facility] [place] [address] [place] [id number] 05/31/2024 Travel 05/31/2024 Orders Only [facility] [address] [place] [address] Liana Russo PA <No scans attached> from [...] on file Legal Sex Male 6:14 AM LENS CLEANER Gender Identity Not on file Sexual Orientation Straight 01/25/2021 7: 46 AM LENS CLEANER 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 Not on file Not on file Obstetrics History Last Filed Vital Signs Vital Sign Reading Time Taken Comments Blood Pressure 135/80 12/30/2022 10:15 AM LENS CLEANER Pulse 95 12/30/2022 10:11 AM LENS CLEANER Temperature 36.8 C (98.2 F) 12/30/2022 10:11 AM LENS CLEANER Respiratory Rate 12 12/30/2022 10:11 AM LENS CLEANER Oxygen Saturation 96% 12/30/2022 10:11 AM LENS CLEANER Inhaled Oxygen Concentration - - Weight 93 [...] ( season) 2023 Tetanus booster 03/27/2024 03/27/2014, 03/0 02/2010 (Completed outside of [facility]) Influenza Vaccine (Season Ended) 2024 12/12/2019, 11/10/2017, 12/04/2016, Additional history exists RSV vaccine for adults or (1 - 1-dose 75+ series) 04/23/2026 Tdap Completed 03/27/2014 Hepatitis B series for 19+ Completed 12/04, 03/23/2007, 09/25/2006, Additional history exists Pneumococcal series for age 50+ Completed 8, 10/28/2016 Zoster (shingles) series for age 50+ Completed 09/21/2019, 07/12/2019, 06/08/2013 Medical Devices Implanted Type Area Traffic Counter Device Identifier Shelf Expiration Date Model / Serial / Lot [id number] ne Matrix 5cc Luz Plus Paste Dbm Implanted:Qty: 1 on 09/15/2018 by Megan Vazquez MD at [facility] Explanted:at [facility] (Quantity not on file) N/A: Spine Medtronic Spine/Ortho 03/18/2020 [id number]# / [id number] / Set Screw Lmbr 5.5-6mm Vitality Torque - [id number] Implanted:Qty: 4 on 09/15/2018 by Megan Vazquez MD at [facility] N/A: Spine Laz Biomet Spine 07.85294.00 1# / / [id number] ne 1-4mm 30cc Medtronic Chips Canclls Freeze Dried Implanted:Qty: 1 on 09/15/2018 by Megan Vazquez MD at [facility] Explanted:at [facility] (Quantity not on file) N/A: Spine Medtronic Spine/Ortho 02/06/2023 [id number]# / [id number] / [id number] ne 1-4mm 15cc Medtronic Chips Canclls Freeze Dried Implanted:Qty: 1 on 09/15/2018 by Megan Vazquez MD at [facility] Explanted:at [facility] (Quantity not on file) N/A: Spine Medtronic Spine/Ortho 11/01/2022 [id number]# / [id number] / Spacer Lmbr Lg 16mm 8deg Perimeter Alif Peek - [id number] Implanted:Qty: 1 on 09/15/2018 by Megan Vazquez MD at [facility] N/A: Spine Medtronic Spine/Ortho 07/14/2026 [id number]# / / 96HP Screw Lmbr Ant 6.5x25mm Pyramid Plus Va - [id number] Implanted:Qty: 1 on 09/15/2018 by Megan Vazquez MD at [facility] N/A: Spine Medtronic Spine/Ortho [id number]# / / Washer 17mm - [id number] Implanted:Qty: 1 on 09/15/2018 by Megan Vazquez MD at [facility] N/A: Spine Medtronic Spine/Ortho [id number]# / / Jewel Lmbr 45x5.5mm Vitality Cvd Titnm - [id number] Implanted:Qty: 2 on 09/15/2018 by Megan Vazquez MD at [facility] N/A: Spine Laz Biomet Spine 07.30611.00 6# / / Screw Lmbr Post 6.5x45mm Vitality Va - [id number] Implanted:Qty: 3 on 09/15/2018 by Megan Vazquez MD at [facility] N/A: Spine Laz Biomet Spine 07.27794.07 5# / / Screw Lmbr Post 6.5x50mm Vitality Va - [id number] Implanted:Qty: 1 on 09/15/2018 by Megan Vazquez MD at [facility] N/A: Spine Laz Biomet Spine 07.78098.07 6# / / [id number] ne Matrix 3cc Luz Dbf Putty Dbm Implanted:Qty: 1 on 08/09/2019 by Megan Vazquez MD at [facility] Explanted:at [facility] (Quantity not on file) N/A: Spine Medtronic Spine/Ortho 2021 [id number]# / [id number] / [id number] ne 1-4mm 30cc Medtronic Chips Canclls Freeze Dried Implanted:Qty: 1 on 08/09/2019 by Megan Vazquez MD at [facility] Explanted:at [facility] (Quantity not on file) N/A: Spine Medtronic Spine/Ortho 11/15/2023 [id number]# / [id number] / Spacer Lmbr [id number] Zyston Convex Stra Plif - [id number] Implanted:Qty: 1 on 08/09/2019 by Megan Vazquez MD at [facility] N/A: Spine Laz Biomet 11/22/2024 [id number]# / / [id number] Screw Lmbr Post 6.5x45mm Vitality Va - [id number] Implanted:Qty: 3 on 08/09/2019 by Megan Vazquez MD at [facility] N/A: Spine Laz Biomet Spine . 5# / / Screw Lmbr Post 7.5x50mm Vitality Va - [id number] Implanted:Qty: 2 on 08/09/2019 by Megan Vazquez MD at [facility] N/A: Spine Laz Biomet Spine 8# / / Set Screw Lmbr 5.5-6mm Vitality Torque - [id number] Implanted:Qty: 5 on 08/09/2019 by Megan Vazquez MD at [facility] N/A: Spine Laz Biomet Spine 10. 1# / / Jewel Lmbr 65x5.5mm Vitality Cvd Titnm - [id number] Implanted:Qty: 1 on 08/09/2019 by Megan Vazquez MD at [facility] N/A: Spine Laz Biomet Spine 15. 0# / / Jewel Lmbr 45x5.5mm Vitality Cvd Titnm - [id number] Implanted:Qty: 1 on 08/09/2019 by Megan Vazquez MD at [facility] N/A: Spine Laz Biomet Spine 15. 6# / / [id number] bone Cerv 7mm 4 Deg Herminia W/P Implanted:Qty: 1 on 09/04/2020 by Megan Vazquez MD at [facility] Explanted:at [facility] (Quantity not on file) N/A: Spine Herminia Spine 10/16/2024 [id number] / [id number] / [id number] ne Matrix 0.5cc Progenix Putty Dbm Implanted:Qty: 1 on 09/04/2020 by Megan Vazquez MD at [facility] Explanted:at [facility] (Quantity not on file) N/A: Spine Medtronic Spine/Ortho 12/26/2021 [id number] / [id number] / [id number] bone Cerv 7mm 4 Deg Herminia W/P Implanted:Qty: 1 on 09/04/2020 by Megan Vazquez MD at [facility] Explanted:at [facility] (Quantity not on file) N/A: Spine Glencoe Spine 05/01/2025 [id number] / [id number] / Plate Tippah 2level 40mm Implanted:Qty: 1 on 09/04/2020 by Megan Vazquez MD at [facility] N/A: Spine [id number] / / Description:PLATE OZARK 2LEV EL 40MM Screw Tippah Variable 4.0 X 14 Implanted:Qty: 6 on 09/04/2020 by Megan Vazquez MD at [facility] N/A: Spine [id number] / / Description:SCREW OZARK VARI ABLE 4.0 X 14 [id number] ne 1-4mm 15cc Medtronic Chips Canclls Freeze Dried Implanted:Qty: 1 on 10/16/2021 by Megan Vazquez MD at [facility] Explanted:at [facility] (Quantity not on file) N/A: Spine Medtronic Spine/Ortho 09/04/2025 [id number] / [id number] / Jewel Lmbr 65x5.5mm Vitality Cvd Titnm - [id number] Implanted:Qty: 1 on 10/16/2021 by Megan Vazquez MD at [facility] N/A: Spine Laz Biomet Spine 15.01 0 / / Set Screw Lmbr 5.5-6mm Vitality Torque - [id number] Implanted:Qty: 3 on 10/16/2021 by Megan Vazquez MD at [facility] N/A: Spine Laz Biomet Spine .00 1 / / Screw 7.5x45mm Implanted:Qty: 1 on 10/16/2021 by Megan Vazquez MD at [facility] N/A: Spine [id number] / / Description:SCREW 7.5X45MM Moldable Demineralized Fibers Implanted:Qty: 1 on 08/20/2022 by Megan Vazquez MD at [facility] 12/24/2026 BL-1800-05 / [id number] / Description:MOLDABLE DEMINER ALIZED FIBERS Bone 1-4mm 60cc Medtronic Fine Canclls Freeze Dried - [id number] Implanted:Qty: 1 on 08/20/2022 by Megan Vazquez MD at [facility] N/A: Spine Medtronic Spine/Ortho 04/28/2026 [id number] / [id number] / Spacer Lmbr [id number] Zyston Convex Stra Tlif - [id number] Implanted:Qty: 1 on 08/20/2022 by Megan Vazquez MD at [facility] N/A: Spine Laz Biomet 05/23/2024 [id number] / / [id number] Spacer Lmbr 88u00x59gh Zyston Convex Stra Tlif - [id number] Implanted:Qty: 1 on 08/20/2022 by Megan Vazquez MD at [facility] N/A: Spine Laz Biomet 14-308532 / / [id number] Screw Poly 6.5 X 45 Implanted:Qty: 4 on 08/20/2022 by Megan Vazquez MD at [facility] N/A: Spine [id number] / / Description:SCREW POLY 6.5 X 45 Screw Poly 7.5 X 45 Implanted:Qty: 1 on 08/20/2022 by Megan Vazquez MD at [facility] N/A: Spine [id number] / / Description:SCREW POLY 7.5 X 45 Jewel Lmbr 100x5.5mm Vitality Cvd Titnm - [id number] Implanted:Qty: 1 on 08/20/2022 by Megan Vazquez MD at [facility] N/A: Spine Laz Biomet Spine 15. 7 / / Jewel Lmbr 120x5.5mm Vitality Cvd Titnm - [id number] Implanted:Qty: 1 on 08/20/2022 by Megan Vazquez MD at [facility] N/A: Spine Laz Biomet Spine 15. 1 / / Set Screw Lmbr 5.5-6mm Vitality Torque - [id number] Implanted:Qty: 9 on 08/20/2022 by Megan Vazquez MD at [facility] N/A: Spine Laz Biomet Spine . 1 / / [id number] ne 1-10mm 30cc Medtronic Chips Canclls Freeze Dried Implanted:Qty: 1 on 12/24/2022 at [facility] N/A: Spine Medtronic Spine/Ortho 08/05/2025 [id number] / [id number] / Bone Matrix Md Infuse Bmp - [id number] Implanted:Qty: 1 on 12/24/2022 by Megan Vazquez MD at [facility] N/A: Spine Medtronic Spine/Ortho 05/23/2024 [id number] / / [id number] Set Screw Lmbr 5.5-6mm Vitality Torque - [id number] Implanted:Qty: 9 on 12/24/2022 by Megan Vazquez MD at [facility] N/A: Spine Laz Biomet Spine 10. 1 / / Jewel Lmbr 90x5.5mm Vitality Cvd Titnm - [id number] Implanted:Qty: 1 on 12/24/2022 by Megan Vazquez MD at [facility] N/A: Spine Laz Biomet Spine 15. 5 / / Jewel Lmbr 95x5.5mm Vitality Cvd Titnm - [id number] Implanted:Qty: 1 on 12/24/2022 by Megan Vazquez MD at [facility] N/A: Spine Laz Biomet Spine 15. 6 / / Jewel Lmbr 120x5.5mm Vitality Cvd Titnm - [id number] Implanted:Qty: 1 on 12/24/2022 by Megan Vazquez MD at [facility] N/A: Spine Laz Biomet Spine 07.93344.02 1 / / Screw Lmbr Post 9.5x50mm Vitality Sc - [id number] Implanted:Qty: 2 on 12/24/2022 by Megan Vazquez MD at [facility] N/A: Spine Laz Biomet Spine 07.29562.20 2 / / Screw Spinal 7.5x45mm Poly Tl Implanted:Qty: 2 on 12/24/2022 by Megan Vazquez MD at [facility] N/A: Spine [id number] / / Description:SCREW SPINAL 7.5 X45MM POLY TL Explanted Type Area Traffic Counter Device Identifier Shelf Expiration Date Model / Serial / Lot Explant - Laz Explanted:Qty: 1 on 08/09/2019 at [facility] N/A: Spine Description:SCREW X2 JEWEL X2 SET SCREW X4 Explant Explanted:Qty: 5 on 10/16/2021 by Megan Vazquez MD at [facility] N/A: Spine Description:JEWEL X1 SCREW X1 SET SCREW X3 Explant Vitality Explanted:Qty: 1 on 08/20/2022 at [facility] Description:2 RIDS, 2 SCREWS , 4 SET SCREWS Explant Explanted:Qty: 15 on 12/24/2022 by Megan Vazquez MD at [facility] N/A: Spine Description:RODX2 SCREW X4 SET SCREW X9 Procedures Procedure Name Priority Date/Time Associated Diagnosis Comments AMB EPIDURAL STEROID INJECTION Routine 08/16/2024 7:58 AM CDT Lumbar radiculopathy CT SPINE LUMBAR WO Routine 08/02/2024 8: [...] appears well seated. Mature dorsal bone grafting. [id number]: No spinal canal neural foraminal narrowing. L1-2: [...] Hardware appears wellseated. Mature dorsal bone grafting. [id number]: No spinal canal neural foraminal narrowing. L1-2: [...] MD @ 08/02/2024 1:35:29 PM (Electronically Signed) Liana WINKLER CT Fi nal Result * [...] MD @ 07/25/2024 8:31:39 AM (Electronically Signed) Liana WINKLER MR Fi nal Result * MR SPINE THORACIC [...] For Patients: As a result of the 21st Century Cures Act, medical imaging exams and [...] MD @ 07/25/2024 8:24:50 AM (Electronically Signed) us Liana WINKLER MR Fi nal Result * XR SPINE LUMBAR [...] - 199 mg/dL 09/08/2014 10:41 PM CDT [facility] TRIGLYCERIDES 163(H) <150 mg/dL 09/08/2014 10:41 PM CDT [facility] HDL CHOLESTEROL 49 >40 mg/dL 09/08/2014 10:41 PM CDT [facility] NON-HDL CHOLESTEROL 176(H) <145 mg/dl 09/08/2014 10:41 PM CDT [facility] CHOL/HDL RATIO 4.59(H) <4.50 09/08/2014 10:41 PM CDT [facility] LDL CHOLESTEROL 143(H) <=130 mg/dL 09/08/2014 10:41 PM CDT [facility] PATIENT STATUS FASTING 09/08/2014 10:41 PM CDT [facility] Blood specimen (specimen) BLOOD SPECIMEN / Unknown Venipuncture / Unknown 09/08/2014 1:21 PM CDT 09/08/2014 1:21 PM CDT Madelaine Durham MD CHEMISTRY F inal Result [facility] [address] [place] [address], [place] * COLONOSCOPY SCREENING (06/28/2012 12:00 AM CDT) Narrative 06/28/2012 12:00 AM CDT Procedure Note Scanner - 06/28/2012 12:00 AM CDT Chris Ramos DO GI PROCEDURE ORD Edited from Last 3 Months or Most Recently Relevant to Health Maintenance [facility] PB ONLY MEDICARE PART A HB ONLY MEDICARE PART B HB ONLY [facility] HC MEDICARE PPS Advance Directives * Full [...] 1:46 PM 08/11/2019 2:26 PM Care Teams Transit Department Clerk Relationship Specialty Start Date End Date Narendra Castle MD [address] [address] PCP - General Family Practice 07/31/22
--- OUTSIDE RECORDS SUMMARY | 2024-08-17 00:41 | XMS_ITS | Clinical Summary ---
Author Organization [facility] Address [address] [place] [address] Care Team Providers Care Career And Transition Teacher Name Role Phone Narendra Castle M.D. Primary Care Provider [phone] Source Comments Patient records contain information from all sites at [facility]. For routine questions regarding patient records, call [phone] during business hours, M-F 8:00 AM - 5:00 PM Central Time. Record requests for emergency care only can be directed to [phone] at any time.[facility] Allergies Active Allergy Reactions Criticality Noted Date [...] place to sleep or slept in a chcf (including now)? No 10/25/2021 Education Answer Date Recorded What is the highest level of school you have completed or the highest degree you have received? 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 Gender Identity Not on file Sexual Orientation Straight 10/25/2021 7: 16 AM CDT Last Filed Vital Signs Vital Sign Reading Time Taken Comments Blood Pressure 135/89 04/05/2024 2:40 PM MAIL COURIER Pulse 75 04/05/2024 2:40 PM MAIL COURIER Temperature 36.1 C (97 F) 04/05/2024 2:40 PM MAIL COURIER Respiratory Rate 18 04/05/2024 2:40 PM MAIL COURIER Oxygen Saturation 97% 04/05/2024 2:40 PM MAIL COURIER Inhaled Oxygen Concentration - - Weight 87.8 kg (193 lb 9.6 oz) 04/05/2024 2:37 P M MAIL COURIER Height 177.8 cm (5' 10) 04/05/2024 2:37 PM MAIL COURIER Body Mass Index 27.78 04/05/2024 2:37 PM MAIL COURIER Plan of Treatment Health Maintenance Due Date [...] this topic Medical Devices Implanted Type Area Engraver Copperplate Device Identifier Shelf Expiration Date Model / Serial / Lot Hardware E.G. Pins/Screws/Ro ds Hardware e.g. pins/screws/ rods Back Description:L4-5, S1 Fusion Hardware E.G. Pins/Screws/Ro ds Hardware e.g. pins/screws/ rods Neck Description:C4-C5 Fusion Knee Implant Knee Implant Left: Knee Insurance [place] [employer]IC[employer] Care Teams Career And Transition Teacher Relationship Specialty Start Date End Date Narendra Castle M.D. PCP - General Family Medicine 08/24/22
== END 2024-08-16 06:37 | disposition home or self-care (01) ==
LOC: INJ CL 06:38
PROVIDERS: PCP Family Medicine; Visit Provider Family Medicine
DX: M54.16 Radiculopathy, lumbar region (principal)
CPT/HCPCS: 64483; J1100; Q9966

== ENCOUNTER 2024-09-27 12:43 | Outpatient (CLI) | payer MEDICARE, BC, SELFPAY | END 2024-09-27 12:44 | disposition home or self-care (01) | LOC: INJ CL 12:44 | PROVIDERS: PCP Family Medicine; Visit Provider Family Medicine | DX: M54.16 Radiculopathy, lumbar region (principal); M51.369 Other intervertebral disc degeneration, lumbar region without mention of lumbar back pain or lower extremity pain | CPT/HCPCS: 64483; J1100; Q9966 ==